=== PATIENT | male | born 1965 | race African-American/Black ===

== ENCOUNTER 2018-05-21 20:28 | Emergency (ER) | payer OTHER ==
--- NOTE | 2018-05-21 20:46 | EDM.PDOC ---
ED HPI GENERAL MEDICAL PROBLEM - General Chief Complaint: General Stated Complaint: PT HAS COLD Time Seen by Provider: 05/21/18 20:45 Source of Information: Reports: Patient History Limitations: Reports: No Limitations - History of Present Illness INITIAL COMMENTS - FREE TEXT/NARRATIVE: HISTORY AND PHYSICAL: History of present illness: Patient is a 52-year-old male here with complaint of dizziness. He states he has had a cold for 5 days, cough and nasal congestion. Today while at work he felt hot, sweating, and dizzy. These symptoms have since resolved. He denies chest pain, shortness of breath, nausea, vomiting, diarrhea, abdominal pain. He has been taking OTC mucinex and other cold medications and thinks he may have "overdone it" with these. Past medical history significant for hypertension. Review of systems: As per history of present illness and below otherwise all systems reviewed and negative. Past medical history: As per history of present illness and as reviewed below otherwise noncontributory. Surgical history: As per history of present illness and as reviewed below otherwise noncontributory. Social history: No reported history of drug or alcohol abuse. Family history: As per history of present illness and as reviewed below otherwise noncontributory. Physical exam: General: Patient sitting comfortably in no acute distress and nontoxic appearing HEENT: Atraumatic, normocephalic, pupils reactive, negative for conjunctival pallor or scleral icterus, mucous membranes moist, throat clear, neck supple, nontender, trachea midline. No meningeal signs. Lungs: Clear to auscultation, breath sounds equal bilaterally, chest nontender. Heart: S1S2, regular, negative for clicks, rubs, or overt murmur. Abdomen: Soft, nondistended, nontender. Negative for masses or hepatosplenomegaly. Negative for costovertebral tenderness. Pelvis: Stable nontender. Genitourinary: Deferred. Rectal: Deferred. Extremities: Atraumatic, negative for cords or calf pain. Neurovascular unremarkable. Neuro: Awake, alert, oriented. Cranial nerves II through XII unremarkable. Cerebellum unremarkable. Motor and sensory unremarkable throughout. Exam nonfocal. Notes: Diagnostics: CBC, CMP, EKG, CXR, influenza Therapeutics: None Prescriptions: Azithromycin Ventolin inhaler Impression: Acute bronchitis Plan: 1. Take medications as instructed 2. Follow up with primary care provider 3. Return to ED as needed as discussed Definitive disposition and diagnosis as appropriate pending reevaluation and review of above. - Related Data Allergies Allergy/AdvReac Type Severity Reaction Status Date / Time No Known Allergies Allergy Verified 05/21/18 20:47 Home Meds: Home Meds Albuterol [Ventolin HFA] 1 puff INH Q4H #1 inhaler 05/21/18 [Rx] Aspirin 1 tab PO DAILY 05/21/18 [History] Azithromycin [Zithromax] 250 mg PO ASDIRECTED #1 dosepk 05/21/18 [Rx] amLODIPine Besylate/Benazepril [Amlodipine-Benazepril 10-40 MG] 1 tab PO DAILY 05/21/18 [History] hydroCHLOROthiazide [Hydrochlorothiazide] 1 tab PO DAILY 05/21/18 [History] ED ROS GENERAL - Review of Systems Review Of Systems: ROS reveals no pertinent complaints other than HPI. ED EXAM, GENERAL - Physical Exam Exam: See Below (see dictation) Course - Vital Signs Last Recorded V/S: Last Vital Signs Temp 97 F 05/21/18 20:35 Pulse 76 05/21/18 20:35 Resp 18 05/21/18 20:35 BP 152/86 H 05/21/18 20:35 Pulse Ox 96 05/21/18 20:35 - Orders/Labs/Meds Orders: Active Orders 24 hr Category Date Time Status EKG Documentation Completion [RC] STAT Care 05/21/18 20:49 Active Chest 2V [CR] Stat Exams 05/21/18 20:55 Taken COMPREHENSIVE METABOLIC PN,CMP [CHEM] Stat Lab 05/21/18 21:05 Received Labs: Laboratory Tests 05/21/18 Range/Units 21:05 WBC 4.19 (4.0-11.0) K/uL RBC 5.51 (4.50-5.90) M/uL Hgb 15.2 (13.0-17.0) g/dL Hct 44.1 (38.0-50.0) % MCV 80.0 (80.0-98.0) fL MCH 27.6 (27.0-32.0) pg MCHC 34.5 (31.0-37.0) g/dL RDW Std Deviation 45.0 (28.0-62.0) fl RDW Coeff of Rabia 15 (11.0-15.0) % Plt Count 163 (150-400) K/uL MPV 11.10 (7.40-12.00) fL Neut % (Auto) 35.6 L (48.0-80.0) % Lymph % (Auto) 50.8 H (16.0-40.0) % [place] % (Auto) 7.2 (0.0-15.0) % Eos % (Auto) 5.0 (0.0-7.0) % Baso % (Auto) 1.4 (0.0-1.5) % Neut # (Auto) 1.5 (1.4-5.7) K/uL Lymph # (Auto) 2.1 (0.6-2.4) K/uL [place] # (Auto) 0.3 (0.0-0.8) K/uL Eos # (Auto) 0.2 (0.0-0.7) K/uL Baso # (Auto) 0.1 (0.0-0.1) K/uL Nucleated RBC % 0.0 /100WBC Nucleated RBCs # 0 K/uL Departure - Departure Time of Disposition: 21:33 Disposition: Home, Self-Care 01 Condition: Good Clinical Impression: Acute bronchitis - Discharge Information Prescriptions: Albuterol [Ventolin HFA] 1 puff INH Q4H #1 inhaler Azithromycin [Zithromax] 250 mg PO ASDIRECTED #1 dosepk Referrals: PCP,None [Primary Care Provider] - Forms: ED Department Discharge Additional Instructions: The following information is given to patients seen in the emergency department who are being discharged to home. This information is to outline your options for follow-up care. We provide all patients seen in our emergency department with a follow-up referral. The need for follow-up, as well as the timing and circumstances, are variable depending upon the specifics of your emergency department visit. If you don't have a primary care physician on staff, we will provide you with a referral. We always advise you to contact your personal physician following an emergency department visit to inform them of the circumstance of the visit and for follow-up with them and/or the need for any referrals to a consulting specialist. The emergency department will also refer you to a specialist when appropriate. This referral assures that you have the opportunity for follow-up care with a specialist. All of these measure are taken in an effort to provide you with optimal care, which includes your follow-up. Under all circumstances we always encourage you to contact your private physician who remains a resource for coordinating your care. When calling for follow-up care, please make the office aware that this follow-up is from your recent emergency room visit. If for any reason you are refused follow-up, please contact the Emergency Department at and asked to speak to the emergency department charge nurse. Primary Care [address] [place] [id number] [facility] [address] [place] [id number] 1. Take medications as instructed 2. Follow up with primary care provider 3. Return to ED as needed as discussed - My Orders Last 24 Hours: My Active Orders 05/21/18 20:49 EKG Documentation Completion [RC] STAT 05/21/18 20:55 Chest 2V [CR] Stat 05/21/18 21:05 COMPREHENSIVE METABOLIC PN,CMP [CHEM] Stat - Assessment/Plan Last 24 Hours: My Active Orders 05/21/18 20:49 EKG Documentation Completion [RC] STAT 05/21/18 20:55 Chest 2V [CR] Stat 05/21/18 21:05 COMPREHENSIVE METABOLIC PN,CMP [CHEM] Stat
[2018-05-21 21:38] LABS: CHLORIDE,CL 103 mmol/L (98-107); SODIUM,NA 138 mmol/L (136-148)
--- NOTE | 2018-05-21 21:59 | CR ---
Clinical INDICATION: Chest pain, shortness breath and cough since Wednesday. FINDINGS: There is moderate cardiomegaly. The lungs are clear. The pulmonary vasculature and pleural surfaces are unremarkable. The costophrenic sulci are excluded from the frontal projection. The bony thorax appears intact. IMPRESSION: Moderate cardiomegaly. No focal infiltrate. Dictated by Rosendo Moy MD @ May 21 2018 9:56PM Signed by Dr. Rosendo Moy @ May 21 2018 9:57PM
== END 2018-05-21 21:50 | disposition home or self-care (01) ==
LOC: MW.ED 20:28
DX: J20.9 Acute bronchitis, unspecified (principal); Z79.899 Other long term (current) drug therapy; Z79.82 Long term (current) use of aspirin
CPT/HCPCS: 36415; 71046; 71046-26; 80053; 85025; 87804; 93005; 99283; 99284-25